=== PATIENT | female | born 1930 | race Caucasian/White ===

== ENCOUNTER 2020-06-08 19:58 | Emergency (ER) | payer OTHER ==
[~2020-06-08] VITALS: Ht 172.7 cm; Wt 59.0 kg
--- NOTE | ~2020-06-08 | EMS ---
[address] [address] EMS Patient Care Report Name: MAXIMUS WILKERSON Room #: REG PHILL Soto#: [id number] Admission: 06/08/20 Attend Phys: Discharge: Date of : [birth year] Report #: [id number] THIS REPORT FOR: //name// Report Transmitted: 06/08/2020 21:17 EMS Care Summary [facility] MED-ACT Incident [id number] @ 06/08/2020 19:05 Incident Location [address] [place] [address] Patient MAXIMUS FUENTES Female, 89 Years 1930 Patient Address [address] [place] [address] Patient History Chronic Obstructive Pulmonary Disease (COPD),Hypertension (HTN),Pacemaker/AICD,Hyperlipidemia,Emphysema,Osteoarthritis,Atrial Fibrillation,Coronary Artery Disease (CAD), Patient Allergies Morphine,Hydrocodone,Amoxicillin,Albuterol, Patient Medications Duloxetine, Lidocaine, Furosemide, Flecainide, Loratadine, Advair, Aspirin, Cardizem, Nystatin, Hydroxyzine, Gabapentin, Metoprolol, Chief Complaint "She's been really combative and confused." Disposition Transported No Lights/[place] Reason Psychiatric Problem/Abnormal Behavior/Suicide Attempt Transported To [address] [address] EMS Patient Care Report Name: MAXIMUS WILKERSON Room #: REG Charles#: [id number] Admission: 06/08/20 Attend Phys: Discharge: Date of : [birth year] Report #: [id number] Narrative Dispatched to [address] Upon our arrival, staff meets EMS at the door. RN reports: Patient normally has periods of confusion and can be combative at points. Normally staff is able to calm her down or she tires herself out. Today, patient started being combative in the morning. She refused to take her medication all day. Staff believes that she has undiagnosed dementia, but daughter doesn't want her to be removed from the facility or move to a different part. Staff reports that today patient was "trying to pull down the fire alarms," and she was "hitting staff members." RN reported that patient was inconsolable. They do UA's on her quite frequently and they always come back negative for a UTI. Her last UA was last month. Staff reports that patient takes some anti-depressants but denies and medication that helps with dementia or schizophrenia. Patient is noted sitting outside of her door with her door open and her cat outside. Patient sees EMS and immediately "wants to see our credentials." When we show her our EMS badges she immediately yells, "I need a police justice. You guys aren't real!" We explain to her that we are trying to help her and to have her explain to us what's going on. It is first attempted to speak very softly at patient and to try and get her to calm down. Patient's LOC is accessed and she is AOx1. Patient goes back and forth between being calm and then screaming at EMS personnel or facility staff. At any point that the nurse tries to explain what's going on, the patient immediately screams at EMS, "Don't listen to her! She's part of the problem." When patient is asked about the problem she says, "I am being kidnapped. They have been writing on napkins to me and telling me to 'Surrender'". Patient insists that she wants to speak to police, so law enforcement is activated C3 in order for patient to try and communicate with them. While patient is saying all of this, she is being incredibly aggressive to EMS staff. She called EMS staff pigs multiple times and made several attempts to hit EMS personnel. Patient attempts to leave the hallway. When she is stopped by an EMS personnel grabbing the arm of the wheelchair, she once again attempts to hit EMS personnel. EMS personnel puts a boot in front of wheel of wheelchair in order to get patient to stay. Patient doesn't realize this for awhile, but once again starts communicating her hallucinations to EMS. It is calmly asked for patient to go to the cot so we can take her out of the facility she does not want to be in. Patient refuses. Staff meanwhile explains the various health ailments that are chronic problems such as a pressure ulcer on her heel and calcifications on patient's knuckles. At one point patient realizes that EMS' boot is in front of her wheelchair and she demands that EMS remove her foot. PM calmly explains that she doesn't want her to go anywhere and we are waiting for the police to show up. It is once again offered for patient to go to the cot which she refuses again. At this time, patient talks more about the napkins and accuses EMS of buying their outfits from secondhand shops in order to act as imposters. Law enforcement show up and patient asks them for their credentials as well and for her to see their guns. It is explained that they cannot give her their gun and patient starts to become [facility] [address] [place] [address] EMS Patient Care Report Name: MAXIMUS WILKERSON Room #: REG [facility].#: [id number] Admission: 06/08/20 Attend Phys: Discharge: Date of : [birth year] Report #: [id number] agitated again. She explains to law enforcement that she is being kidnapped. Law enforcement tries to gently get patient to go to the cot, but she refuses. At this point, EMS takes the wheelchair handles and starts to push wheelchair to the cot. Patient starts screaming and grabs onto the door handle and screams, "Help me," very loudly. Between law enforcement and EMS pushing wheelchair, patient's outreach consultant is lost on the door and she is picked up by four personnel and placed onto the cot. She is still screaming for help. She is placed in soft restraints and the hands and feet. Patient tries to resist, but then goes back to being agitated and asking, "Who is heading all of this?" Cot is wheeled to ambulance. Patient is still initially aggressive just prior to departure. Vitals are obtained along with bG. [facility] is contacted via radio. Throughout transport, patient starts to calm down and lays still on the cot. When she is addressed by EMS, she refuses to open her eyes at points. It isn't until [id number] is pulling into the hospital that patient starts to become agitated again. Cot is wheeled to ER Room 1 where patient is lifted via total lift onto bed and report given to RN. Signatures obtained. Initial Vitals @19:48P: 75,BP: 156/83,SpO2: 93, @19:39P: 83,BP: 177/81,SpO2: 90, @19:28P: 79,R: 16,Pain: 0/10,Temp: 98.6F,Glucose: 91,SpO2: 83, Assessments @19:14MENTAL:Combative,Confused,Hallucinations,SKIN:HEENT:Head/Face: No Abnormalities,Neck/Airway: No Abnormalities,LUNG SOUNDS:General: No Abnormalities,ABDOMEN:General: No Abnormalities,PELVIS//GI:EXTREMITIES:Left Arm: No Abnormalities,Right Arm: No Abnormalities,Left Leg: No Abnormalities,Right Leg: No Abnormalities,PULSE:NEURO:No Abnormalities, Impression Behavioral/psychiatric episode Procedures @19:13ALS AssessmentResponse: UnchangedSucceeded@19:35Surgical Mask on PatientResponse: Unchanged@19:30Patient RestraintResponse: UnchangedSucceeded Timeline 19:03,Call Received 19:03,Psap Call 19:05,Dispatched 19:06,En Route 19:10,On Scene 19:13,At Patient 19:13,ALS Assessment,Response: UnchangedSucceeded, 19:28,BP: / M,PULSE: 79,RR: 16 R,SPO2: 83 Ox,ETCO2: ,B,PAIN: 0,GCS: , [facility] [address] [place] [address] EMS Patient Care Report Name: RAMÍREZ JAIMESMAXIMUS SARABIA Room #: REG PHILL StanfordRJusto#: [id number] Admission: 06/08/20 Attend Phys: Discharge: Date of : [birth year] Report #: [id number] 19:30,Patient Restraint,Response: UnchangedSucceeded, 19:35,Surgical Mask on Patient,Response: Unchanged 19:39,BP: 177/81 M,PULSE: 83,RR: R,SPO2: 90 Ox,ETCO2: ,BG: ,PAIN: ,GCS: , 19:40,Depart Scene 19:48,BP: 156/83 M,PULSE: 75,RR: R,SPO2: 93 Ox,ETCO2: ,BG: ,PAIN: ,GCS: , 19:58,At Destination 20:09,Call Closed Disclaimer v1.1 Copyright 2020 [employer] This EMS Care Summary contains data elements from the applicable legal record (which may be displayed differently). It is designed to provide pertinent information for the following purposes: continuity of care, clinical quality, and state data reporting. The complete legal record is available to ED staff and administrators of the receiving hospital in [employer] Patient Tracker. All data is provided "as is."
[2020-06-08 21:40] LABS: ABSOLUTE NEUTROPHILS 5.4 thou/uL (1.4-8.2); BASOPHILS 1.3 % (0.0-2.0); EOSINOPHILS 1.9 % (0.0-3.0); HEMATOCRIT 34.8 % (37.0-47.0); HEMOGLOBIN 11.3 gm/dL (12.0-15.0); LYMPHOCYTES 15.2 % (24.0-44.0); MCH 30.3 pg (26.0-34.0); MCHC 32.5 g/dL (28.0-37.0); MCV 93.2 fL (80.0-100.0); MONOCYTES 9.1 % (1.0-8.0); PLATELET COUNT 228 thou/uL (150-400); POLYS 72.5 % (36.0-66.0); RBC 3.74 mil/uL (4.20-5.00); RDW 13.7 % (10.5-14.5); WBC 7.5 thou/uL (4.0-11.0)
[2020-06-08 21:54] LABS: ANION GAP 8 mmol/L (7-16); BUN 26 mg/dL (7-18); CALCIUM 9.5 mg/dL (8.5-10.1); CHLORIDE 105 mmol/L (98-107); CO2 30 mmol/L (21-32); CREATININE 1.2 mg/dL (0.6-1.0); GLUCOSE 94 mg/dL (74-106); POTASSIUM 4.6 mmol/L (3.5-5.1); SODIUM 143 mmol/L (136-145)
[2020-06-08 22:01] LABS: MAGNESIUM 2.1 mg/dL (1.8-2.4); SALICYLATE < 2.8 mg/dL (2.8-20.0); SGOT 14 U/L (15-37); SGPT 16 U/L (30-65); TOTAL BILIRUBIN 0.3 mg/dL (0.2-1.0); TOTAL PROTEIN 6.5 g/dL (6.4-8.2); TROPONIN-I <0.06 ng/mL (<0.06)
[2020-06-09 00:42] LABS: URINE BILIRUBIN NEGATIVE (Negative); URINE BLOOD NEGATIVE (Negative); URINE CLARITY CLEAR; URINE COLOR YELLOW; URINE GLUCOSE-RANDOM* NEGATIVE (Negative); URINE KETONES TRACE (Negative); URINE NITRITE-REFLEX NEGATIVE (Negative); URINE PROTEIN (DIPSTICK) NEGATIVE (Negative); URINE SPECIFIC GRAVITY 1.025 (1.005-1.035); URINE UROBILINOGEN 0.2 E.U./dl (0.2-1.0)
[2020-06-09 00:50] LABS: AMP/METHAMP Negative (Negative); BARBITURATES Negative (Negative); BENZODIAZEPINES Negative (Negative); COCAINE Negative (Negative); METHADONE Negative (Negative); OPIATES Negative (Negative); PCP Negative (Negative); URINE LEUKOCYTES-REFLEX 1+ (Negative)
[2020-06-09 01:07] LABS: BACTERIA-REFLEX None Seen /HPF (None Seen); CASTS None Seen /LPF (None Seen); CRYSTALS None Seen /LPF (None Seen); MUCUS None Seen strn/LPF (None Seen); SQUAMOUS 4-10 Moderate /LPF (0-3); URINE RBC None Seen /HPF (0-2); URINE WBC-REFLEX 6-15 Few /HPF (0-5); WBC CLUMPS Occasional (None Seen)
[2020-06-09 05:33] VITALS: BP 155/72
--- NOTE | 2020-06-18 07:54 | EKG ---
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 : [id number] Requested By: Rivas Flores Order Number: [id number] MD: Melo Escoto Measurements Intervals [place] Rate: 73 P: -52 DC: 163 QRS: 50 QRSD: 88 T: 71 QT: 404 QTc: 446 Interpretive Statements Sinus rhythm with first-degree AV block Poor R wave progression Artifact in lead(s) I,II,III,aVR,aVL,aVF,V1 No previous ECG available for comparison Electronically Signed On 06-11-2020 7:23:00 MANAGER RESOURCE by Melo Escoto [email or web address] <ELECTRONICALLY SIGNED> By: Melo Escoto MD, [facility] 06/11/20 0723 49 49 Melo Escoto MD, [facility] /EPI
== END 2020-06-09 05:42 | disposition still patient (30) ==
LOC: ER 19:58
PROVIDERS: Emergency Medicine
DX: F03.91 Unspecified dementia, unspecified severity, with behavioral disturbance (principal); Z20.828 Contact with and (suspected) exposure to other viral communicable diseases; R41.82 Altered mental status, unspecified; R22.31 Localized swelling, mass and lump, right upper limb; Z88.8 Allergy status to other drugs, medicaments and biological substances; Z88.1 Allergy status to other antibiotic agents; Z88.5 Allergy status to narcotic agent

== ENCOUNTER 2020-06-09 07:39 | Inpatient (IN) | payer OTHER ==
[~2020-06-09] VITALS: Ht 160 cm; Wt 58.4 kg
--- NOTE | ~2020-06-09 | D ---
[facility] [place] [address] [address] DISCHARGE SUMMARY Name: MAXIMUS WILKERSON Room #: 523B-B DIS IN M.R.#: [id number] Admission: 06/09/20 Attend Phys: Amandeep Gardner DO Discharge: 06/14/20 Date of : [birth year] Report #: [id number] THIS REPORT FOR: cc: Hong Infante MD, Christopher MS Kerstein, Andrew H. DO ~ DATE OF SERVICE: 06/15/2020 INPATIENT PSYCHIATRIC DISCHARGE SUMMARY ATTENDING PSYCHIATRIST: Amandeep Gardner DO. STRUCTURAL ENGINEER AT: Oli Barakat MD DISCHARGE DIAGNOSES: Major neurocognitive disorder, unspecified etiology with behavioral disturbance, delirium secondary to multiple causes, most recently, she had acute hypoxic respiratory failure. MEDICAL COMORBIDITIES: Include the following: Right middle finger soft tissue swelling with ulcer, most likely gout, ID and Orthopedics were consulted. MRI of the hand was deferred, bilateral ankle ulcers, CKD stage III, history of COPD, history of AFib in sinus rhythm. Flecainide, diltiazem, ramipril, gabapentin. DISCHARGE PLAN: The patient is discharged to the [facility]. Psychiatric and medical care will be per the Hospitalist team's discretion. DISCHARGE MEDICATIONS: Please note this was an emergency discharge. So, the discharge medication list was essentially minimized to the hospitalist's discretion. LABORATORY DATA: Laboratories this admission were as follows: Most recent CBC at time of discharge, white count 5.1, H and H 12.2 and 38.2, platelet count 227. Blood gas showed pO2 of 76.7, bicarbonate 47.4. Chemistries on 06/14/2020, sodium 144, potassium 4.4, chloride 103, bicarbonate 30, anion gap 11, BUN 48, creatinine 2.3. It should be noted the previous creatinine on 06/10/2020 was 1.2. Estimated GFR was 20, glucose 106, calcium 9.6, ____. COVID-19 PCR serology testing was not detected. Imaging was done on 06/14/2020 showed development of multifocal pneumonia in her lungs. REASON FOR ADMISSION: Back on the 06/08/2020 was as follows, an 89-year-old female from [place] [facility] at [facility], recently with aggressive behaviors, verbally and physically aggressive towards staff. This is uncommon for her. She has been refusing medications. On [facility] [address] [place] [address] DISCHARGE SUMMARY Name: RAMÍREZ HELMMAXIMUS Room #: 523B-B [facility] IN ..#: [id number] Admission: 06/09/20 Attend Phys: Amandeep Gardner, Discharge: 06/14/20 Date of : [birth year] Report #: [id number] Thursday, she pulled out the fire alarm since ____. Her daughter, Fabiana, verbalizes that her mother's mental status was fine until the last 6 months. Fabiana reports her being in the treatment by ____ in the past and had an advanced COPD. HOSPITAL COURSE: The patient was admitted to Geriatric Psychiatry Unit. Unfortunately, we did not have a clear trend of improvement with the patient. She would be more alert for a day or two then less alert. Her daughter was very concerned bothered by this. I spent about 40 minutes on the phone with her daughter the day of discharge and I advised her daughter that either she would need to go medical, something could be demonstrated which it was or the patient would be a candidate for comfort care. I communicated the daughter's feedback to me with the nurse. There had been some low pulse ox noted on the day of discharge. CONDITION AT DISCHARGE: Medically unstable. No mental status examination was done at the time of discharge. Vital signs on the 06/14/2020, temperature 36.5, pulse 83, respirations 17, BP 130/46, O2 sat 91% on 6 liters nasal cannula. PROGNOSIS: For this patient is guarded to poor given her age of 89, having an advanced dementia. If treatment from the Medical Unit is abandoned, I think hospice care would be appropriate. By: 50 34 Amandeep Gardner, DO /nt
[2020-06-09 06:10] VITALS: BP 175/71
[2020-06-09 07:30] VITALS: BP 114/93
[2020-06-09 08:00] VITALS: BP 141/103
[2020-06-09 08:02] VITALS: BP 114/93
--- NOTE | 2020-06-09 16:09 | NUR ---
KUMAR contacted the Pt's daughter/DPOA Fabiana Velarde, , to completed the assessment on the Pt. Fabiana did inform that the Pt [place] [facility] Also the Pt does hae issues with ETOH use. Fabiana informed the Pt drinks about a pint of gin a day. This has has been a point of stress between the Pt and Fabiana. Fabiana stated that when the Pt is withdrawing from ETOH the Pt becomes extremely aggitated and will scream and yell. Also that the Pt cognitive decline started about 6 months ago but drastically declined in the last month. Elisa had no further questions or concerns at this time. KUMAR will continue to follow the Pt.
--- NOTE | 2020-06-09 19:34 | NUR ---
Pt. admitted via ER for altered mental status. Daughter describes her having hallucinations with paranoia X 6 months. Describes her mother as thinking/seeing a family living with her in her apartment and thinking things are being stolen from her. Pt. was described as being aggressive and agitated. Also presents with swollen R middle finger with ulcer, painful to touch and ulcers on feet, photographed and placed in chart. Initially alert and orientated X3, ambulating with irregular gait with walker, requiring supervision. Denies SI/HI. Became aggressive later in AM pushing walker against other peers and staff. Calling staff names with insults, then hitting staff in abdomen and then grabbed crotch. Took Haldol PO with alot of encouragement, then spit out on floor. 5mg Haldol given IM per order, spent majority of day sleeping. Was able to stand for wt. Breath sounds clear with congested cough. Reg HR auscultated. Color pink with brisk capillary refill. Pacemaker palpated. Active bowel sounds over soft, rounded abdomen, medium brown formed stool with yellow urine per toilet. Consents done over the phone with DPOA. Rocephin given IM per vastus lateralis bilaterally. Currently sleeping in room.
[2020-06-09 20:18] VITALS: BP 199/86
[2020-06-09 21:33] VITALS: BP 115/44
--- NOTE | 2020-06-10 04:35 | NUR ---
ASSUMED CARE OF PT AT 1900. PT IS A/O X1 AND LETHARGIC. ELEVATED B/P AND LOW O2 WHILE SLEEPING. NOTIFIED SCIENTIFIC SYSTEMS ANALYST. ORDERS GIVEN. PT IS CURRENTLY LYING IN HER BED AND IS ON 2 LITERS OF 02 NC WITH A SITTER AT THE BEDSIDE. SPOKE WITH DAUGHTER IN THE EARLIER EVENING. UPDATE GIVEN. FALL PRECAUTIONS ARE IN PLACE.
[2020-06-10 06:56] LABS: BASOPHILS 0.8 % (0.0-2.0); EOSINOPHILS 2.3 % (0.0-3.0); HEMATOCRIT 40.2 % (37.0-47.0); HEMOGLOBIN 12.9 gm/dL (12.0-15.0); LYMPHOCYTES 20.3 % (24.0-44.0); MCH 30.2 pg (26.0-34.0); MCHC 32.1 g/dL (28.0-37.0); MCV 94.1 fL (80.0-100.0); PLATELET COUNT 251 thou/uL (150-400); POLYS 66.6 % (36.0-66.0); RBC 4.27 mil/uL (4.20-5.00); RDW 13.8 % (10.5-14.5)
[2020-06-10 07:18] LABS: ALBUMIN 3.1 g/dL (3.4-5.0); CALCIUM 9.9 mg/dL (8.5-10.1); CREATININE 1.2 mg/dL (0.6-1.0); POTASSIUM 4.4 mmol/L (3.5-5.1); TOTAL BILIRUBIN 0.3 mg/dL (0.2-1.0)
[2020-06-10 11:23] VITALS: BP 138/60
--- NOTE | 2020-06-10 12:13 | HC ---
[facility] [place] [address] CONSULTATION Name: MAXIMUS WILKERSON Room #: 523B-B ADM IN M.R.#: [id number] Admission: 06/09/20 Attend Phys: Amandeep Gardner DO Discharge: Date of : [birth year] Report #: [id number] THIS REPORT FOR: cc: Hong Infante MD, Christopher MS Jetmore, Allen B. MD ~ DATE OF SERVICE: 06/09/2020 WOUND CARE CONSULTATION NOTE REASON FOR CONSULTATION: Chronic diabetic ulcer of right heel, swollen, inflamed right third finger with open wound in setting of altered mental status. HISTORY OF PRESENT ILLNESS: The patient is an 89-year-old resident of [facility] with a history of dementia and diabetes mellitus type 2, diabetic neuropathy. I have seen the patient previously at [facility] for treatment of her heel ulcer. The patient had a swollen, red and inflamed right third finger, which became worse and was seen by Dr. Soliman in the Wound Care Center weeks ago and then 2 weeks ago required surgical incision and drainage by orthopedic team in [facility]. We have no reports with the patient's daughter, Fabiana Marte, states that physician thought this might be gout related. The patient was then seen in the Wound Care Clinic at [facility], Dr. Serafin Adams 2 days ago on . The patient is now admitted to the Behavioral Psych Unit with altered mental status. The patient's daughter states that she has had trouble with sundowning and disorientation in the evening, strongly desires that she remains in the Behavioral Health Unit. I am consulted for wound care due to the appearance of the right third finger and wound of the heel. I spoke with Dr. Smith. The patient's daughter strongly wishes that whatever medical treatment will be done for the finger, not required that the patient be moved out of the Behavioral Unit and strongly wished for her to remain in the Behavioral Unit. PAST MEDICAL HISTORY: 1. Diabetes mellitus type 2 with diabetic neuropathy. 2. Chronic obstructive pulmonary disease. 3. Dementia. 4. Possible history of the past of gout. 5. 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 MEDICATIONS: See chart. PHYSICAL EXAMINATION: GENERAL: Shows an elderly woman whose mental status is definitely altered per my previous visits with her. She is much less alert and now is conversant. LUNGS: Respirations are unlabored. [facility] [address] [place] [address] CONSULTATION Name: MAXIMUS WILKERSON Room #: 523B-B [facility] IN .R.#: [id number] Admission: 06/09/20 Attend Phys: Amandeep Gardner DO Discharge: Date of : [birth year] Report #: [id number] ABDOMEN: Soft. EXTREMITIES: Examination of the extremities shows her right third finger to be swollen to about twice normal size, somewhat red and with an open circular 1 cm crusted wound medially at the proximal interphalangeal joint. There is white tissue at the base of the wound, which appears possibly to be tendon. Finger is tender to touch. Examination of the lower extremities shows a chronic 3 x 3 x 2 mm deep diabetic ulcer of the right heel, which appears stable. IMPRESSION: I had discussion with the patient's daughter, Fabiana Marte, and with Dr. Smith. Clinically, the right third finger appears to be infected with an open wound and could potentially be a source of her altered mental status. PLAN: Will be to obtain plain radiographs of the finger to assess for possible joint involvement and to rule out osteomyelitis. Wound cultures will be done of the open wound of the right finger. The patient will be placed on Rocephin 2 grams IM so that she may remain in the Behavioral Unit (she would not be able to receive intravenous medication to the Behavioral Unit). We will consult Dr. Rivas Hall, Infectious Disease. I spoke with Dr. Rivas Hall about the case. Wound cultures will be done and topical gentamicin 0.1% will be applied to the finger. Simple foam border for the heel wound. We will stress to all treating physicians the patient should remain in the Behavioral Unit as per her daughter's strong sentiments about this based on past behaviors in a hospital setting. Wound care team will follow, pending x-ray of the right hand, IM antibiotics, infectious disease consultation, Orthopedics, Dr. Mary Singer will also be consulted. <ELECTRONICALLY SIGNED> By: Stone Redd MD 06/10/20 1213 [id number] 181 Stone Redd MD /nt
--- NOTE | 2020-06-10 13:57 | NUR ---
PATIENT ALERT AND RESPONSIVE TO QUESTIONS ADDRESSED TO HER. IN MORNING PATIENT VERY LETHARGIC AND UNABLE TO AWAKEN FOR BREAKFAST. AWOKEN AND DID WELL WITH TAKING HER MEDICATIONS. NURSE PRACTIONER ASSESSED MIDDLE FINGER OF RIGHT HAND AND WILL FOLLOW UP WITH UNIT. E-RAY TAKEN AND TOLERATED WELL. DRESSING CHANGED AND INTACT. AWOKEN FOR LUNCH AND ATE 40 PERCENT. HAS BEEN SITTING DOZING OFF IN DINING [place] ALL DAY.
[2020-06-10 19:58] VITALS: BP 158/75
[2020-06-10 21:37] VITALS: BP 158/75
--- NOTE | 2020-06-11 04:19 | NUR ---
Assumed care of patient at 1900. Pt resting in bed with eyes closed at start of shift and appeared to be sleeping. Pt is alert x 1 to self. Pt has been resting comfortably in bed with her eyes closed. Pt is sleepy but arouseable for assessmewnt. Pt has been calm and cooperative. Pt medication complaint at HS except for Gabepentin, which she refused at HS stating she had already had that about 1500 amd did not want to take it again. Pt denied having any pain at time of assessment. Pt had scheduled breathing tx immediately prior to shift assessment and breath sounds where clear throughout. Pt is a 1:1 for safety at [facility] d/t oxygen. Pt is currently on 1 L oxygen via nasal cannula at [facility]. O2 sat were ranging between 92-94%. Pt has been up x 2 with assist x 1 to bedside commode. Pt had orders for UA, which was collected and sent to lab at 1936. Pt continues denies an thougths of SI/HI. Phone call from Dr. Black towards start of shift received with orders for patient to be NPO at midnight. Order placed and 1:1 staff made aware of NPO status. Pt COVID-19 results came back negative. Pt is a high fall risk and fall risk precautions are in place. Pt uses walker and can be unsteady. Pt has two covered wounds. One opened wound on left heal and a second on on right middle finger w/ possible infection. Wound care consultatation completed on 06/09/20. Will continue to monitor for any changes and safety.
[2020-06-11 07:47] VITALS: BP 126/57
--- NOTE | 2020-06-11 10:34 | NUR ---
ASSUMED CARE AT 0700 THIS MORNING. PT. SITTING IN A RECLINING CHAIR. HER MEDICATIONS WERE GIVEN CRUSHED IN PUDDING. SHE TOOK THESE WITHOUT PROBLEMS. HER CLOTHING WAS CHANGED. HER ARRIVED TO SUPERINTENDENT MEASUREMENT PATIENT. SHE WAS TAKEN TO THE ER EXIT AND PLACED IN THE FAMILY CAR ALONG WITH HER BELONGINGS, DISCHARGE PAPERS, SCRIPTS, AND OTHER PAPERS NEEDED FOR THE FACLITIY. THEY LEFT IN THE FAMILY CAR. REPORT CALLED TO [facility]. NO ANSWER. LEFT MESSAGE FOR THEM TO CALL FOR REPORT. NO RETURN CALL AT THIS TIME.
[2020-06-11 13:30] VITALS: BP 126/57
--- NOTE | 2020-06-11 13:33 | NUR ---
ASSUMED CARE AT 0700 THIS MORNING. PT. IN BED NPO FOR XRAY OF FINGER TO RIGHT HAND. XRAY UNABLE TO BE TAKEN DUE TO PT. HAVING PACEMAKER. DR. Posadas called and wanted xray done. TALKED WITH DR. YOUNG. DR. YOUNG TALKED WITH DR. Posadas ON THE PHONE. AN ASSIST TO DR. Posadas CAME UP HERE. SHE UNWRAPPED THE HAND AND WILL REPORT BACK TO HER DR. MRSA SWAB TAKEN AND TAKEN TO THE LAB. SHE STATED SHE NEEDED UP TO BEDSIDE COMODE BECAUSE SHE NEEDED TO GO TO THE BATHROOM. AFTER SHE COMPLETED THAT SHE WAS SAT IN A CHAIR. WHEN THIS RN RETURNED TO THE ROOM, THE PT. WAS BACK IN BED. SHE HAD DONE THIS HERSELF.
[2020-06-11 19:47] VITALS: BP 168/74
--- NOTE | 2020-06-12 04:53 | NUR ---
Assumed care for this patient at 1900. [facility] shift and earlier part of evening. Pt compliant with HS assessment and medications. Pt takes medications whole and with thin liquids. Pt had peanut butter and crackers for HS snack and ate 100%. Pt denies having any pain, SI/HI, AVH. Pt daughter Fabiana called to speak with her this evening. Pt stated to this nurse she did not want to talk to Fabiana and this time as she did not know what to say to her and did not want to upset her, becoming tearful. This nurse spoke with Fabiana and explained to her that the pt did not wish to talk to her at this time. Fabiana stated she understood and she just wants her mom to know she is there for her and that she can be contacted at anytime. Pt has been calm and cooperative. RT contacted at approximately 2145 as they had not come to administer her scheduled 1900 treatment. RT arrived at floor close to 2330 - 2345 to administer. Pt had treatments scheduled at 1900 and 0100 and received one out of the two treatments. Pt requested help gettig too bed at 2200. Pt has been resting quietly in bed throughout night w/HOB elevated and appears to be sleeping. Pt has wound to right 3rd finger which is wrapped in kerlex. She also has bilateral ulcers on right and left heel. Right heel ulcer is open. Per orders right ankle/heel wrapped with kerlex for protection at HS. Pt is a high fall risk and has fall precautions protocol in place. Pt bed is locked in low position with bed alarm on. Pt is min assist x 1, but on occassion does get up to use bed side commode independently. Pt is reminded to wait for assistance in ambulating and transfering and has been compliant with that this shift. Will continue to monitor for any changes in behavior/mood and for safety.
[2020-06-12 09:11] VITALS: BP 134/59
--- NOTE | 2020-06-12 09:16 | NUR ---
ASSUMED CARE AT 0700 THIS MORNING. PT. IS STABLE, LYING IN HER BED. SHE REFUSED BREAKFAST B/C SHE WANTED TO SLEEP. SHE DID TAKE HER MORNING MEDICATIONS WITHOUT DIFFICULTY. NO BEHAVIORS NOTED.
[2020-06-12 09:22] VITALS: BP 134/59
--- NOTE | 2020-06-12 17:49 | NUR ---
daughter called and wanted to speak with her mother. the phone was passed to the mother. THIS RN OVERHEARD THE PT. SAY, "YOU KNOW I'M NOT WANTING TO DO THAT. YOU CAN'T TELL ME WHAT TO DO. LEAVE ME ALONE". AFTER THE CONVERSATION WAS TERMINATED, THE DAUGHTER CALLED BACK C/O OF HOW SHE THINKS HER MOTHER IS "TOO SNOWED" AND THAT "I SHOULD JUST SIGN HER OUT AMA. DAUGHTER CONTINUED TO BE UPSET DEMANDING WHAT MEDICATIONS THE PT. IS ON. THIS RN REFERED HER TO DR. YOUNG. DR. YOUNG CALLED, INFORMED OF THE SITUATION. THE DAUGHTERS PHONE NUMBER WAS PROVIDED TO THE SO HE COULD CALL HER.
[2020-06-12 20:20] VITALS: BP 117/59
--- NOTE | 2020-06-13 03:26 | NUR ---
ASSUMED CARE ON 06/12/20 @ 19:00. COOPERATED WITH ASSESSMENT, HRRR, LUNGS CLEAR TO AUSCULTATION BILAT, ABD N X 4Q. RIGHT HAND WRAPPED IN GAUZE, DRESSING C/D/I, R HEEL HAS DRESSING C/D/I. COMPLIANT WITH MEDICATION ADMINISTRATION, TAKES MEDS WHOLE WITH THIN WATER. IN BED SLEEPING AT THIS WRITING, WILL CONTINUE TO MONITOR PER UNIT PROTOCOL.
[2020-06-13 09:17] VITALS: BP 145/59
[2020-06-13 19:44] VITALS: BP 125/65
--- NOTE | 2020-06-14 03:09 | NUR ---
ASSUMED CARE ON 06/13/20 @ 19:00, COOPERATED WITH ASSESSMENT AND COMPLIANT WITH MEDICATION ADMINISTRATION. RETIRED TO BED @ AND HAS SLEPT WELL. WILL CONTINUE TO MONITOR PER UNIT PROTOCOL FOR COMFORT AND SAFETY.
[2020-06-14 09:13] VITALS: BP 115/53
[2020-06-14 10:41] VITALS: BP 115/53
--- NOTE | 2020-06-14 11:58 | NUR ---
1158 RESUMMED CARE FROM OVERNIGHT SHIFT THIS AM, PATIENT IN ROOM SLEEP. I GOT PATIENT UP CLEANED HER AND TOOK HER TO DAYROOM FOR BREAKFAST. PATIENT ATE TOOK MEDICATION WITHOUT INCIDENCE. PATIENT IS ORIENTED TO SELF ONLY SPEAK IS GARBLED. PATIENTS ABDOMEN SOFT ROUND BOWEL SOUNDS PRESENT LUNGS SOME RATTLING IN BOTH UPPER AND LOWER LUNGS. PATIENT HAS WET COUGH PATIENT DOES NOT UNDERSTAND ABOUT SI/HI/AH/VH AT PRESENT DUE TO MENTAL STATUS. SHE IS CALM COOPERATIVE WILL CONTINUE TO MONITOR PATIENT FOR SAFETY AND BEHAVIORS.
--- NOTE | 2020-06-14 12:52 | NUR ---
Referral for [facility] memory care faxed to [facility]
[2020-06-14 19:30] VITALS: BP 130/46
[2020-06-14 19:39] LABS: BE(vivo) 2.8 mmol/L (-2 to +3); HCO3 28.4 mmol/L (22.0-26.0); PCO2 47.4 mmHg (35.0-45.0); PO2 76.7 mmHg (80.0-100.0); pH 7.395 (7.360-7.450); sO2 95.2 % (92.0-98.0)
--- NOTE | 2020-06-14 21:24 | NUR ---
Orders received from KARTHIK Mayorga to transfer pt to medical floor. [facility]. ABG done. BPM and CBC stat labs drawn and awaiting results. Pt currently on 6 L of oxygen via nc and stating at 91%. Report given to MARJAN Rose. Mask on and inplace. Last BP 166/53; R 16; P 83 @ 2049. Transfered by bed.
[2020-06-14 21:44] LABS: ABSOLUTE NEUTROPHILS 3.6 thou/uL (1.4-8.2); BASOPHILS 0.6 % (0.0-2.0); EOSINOPHILS 0.1 % (0.0-3.0); HEMATOCRIT 38.2 % (37.0-47.0); HEMOGLOBIN 12.2 gm/dL (12.0-15.0); LYMPHOCYTES 13.5 % (24.0-44.0); MCH 30.2 pg (26.0-34.0); MCHC 31.9 g/dL (28.0-37.0); MCV 94.5 fL (80.0-100.0); MONOCYTES 14.8 % (1.0-8.0); PLATELET COUNT 227 thou/uL (150-400); RBC 4.05 mil/uL (4.20-5.00); RDW 14.1 % (10.5-14.5); WBC 5.1 thou/uL (4.0-11.0)
[2020-06-14 21:45] LABS: CALCIUM 9.6 mg/dL (8.5-10.1); CREATININE 2.3 mg/dL (0.6-1.0); POTASSIUM 4.4 mmol/L (3.5-5.1)
== END 2020-06-14 22:31 | disposition home or self-care (01) | DRG 884 ==
LOC: SBH 07:39
PROVIDERS: Hospitalist; Nurse Practitioner Family; ADMIT Psychiatry & Neurology Psychiatry; ATTEND Psychiatry & Neurology Psychiatry
DX: F03.91 Unspecified dementia, unspecified severity, with behavioral disturbance (principal); N18.30 Chronic kidney disease, stage 3 unspecified; J96.01 Acute respiratory failure with hypoxia; L97.329 Non-pressure chronic ulcer of left ankle with unspecified severity; L97.319 Non-pressure chronic ulcer of right ankle with unspecified severity; L97.419 Non-pressure chronic ulcer of right heel and midfoot with unspecified severity; R41.0 Disorientation, unspecified; J44.9 Chronic obstructive pulmonary disease, unspecified; E11.622 Type 2 diabetes mellitus with other skin ulcer; E11.40 Type 2 diabetes mellitus with diabetic neuropathy, unspecified; M19.041 Primary osteoarthritis, right hand; L03.011 Cellulitis of right finger; F29 Unspecified psychosis not due to a substance or known physiological condition; Z88.6 Allergy status to analgesic agent; Z88.8 Allergy status to other drugs, medicaments and biological substances; Z88.1 Allergy status to other antibiotic agents; E11.22 Type 2 diabetes mellitus with diabetic chronic kidney disease; Z20.828 Contact with and (suspected) exposure to other viral communicable diseases
CPT/HCPCS: 10880

== ENCOUNTER 2020-06-14 20:54 | Inpatient (IN) | payer OTHER ==
[~2020-06-14] VITALS: Ht 167.6 cm; Wt 60.6 kg
[2020-06-14 22:33] VITALS: BP 124/64
[2020-06-15 02:29] LABS: BE(vivo) 1.3 mmol/L (-2 to +3); HCO3 26.8 mmol/L (22.0-26.0); PCO2 46.2 mmHg (35.0-45.0); PO2 234.9 mmHg (80.0-100.0); pH 7.382 (7.360-7.450); sO2 99.5 % (92.0-98.0)
--- NOTE | 2020-06-15 03:07 | NUR ---
ASSUMED CARE OF PATIENT FROM [facility]. PATIENT ON NON-REBREATHER, ABLE TO AMBULATE FROM WHEELCHAIR TO BED. NOT ABLE TO ANSWER ADMISSION QUESTIONS. DAUGHTER CONTACTED, ABLE TO FACETIME WITH NURSE PRACTITIONER AND PATIENT. PATIENT REMAINS LETHARGIC, BUT AROUSABLE. NOW ON 2L. PICTURES OF WOUNDS DOCUMENTED.
[2020-06-15 03:51] VITALS: BP 113/63
[2020-06-15 06:21] LABS: HEMATOCRIT 36.1 % (37.0-47.0); HEMOGLOBIN 11.5 gm/dL (12.0-15.0); MCH 30.2 pg (26.0-34.0); MCHC 31.9 g/dL (28.0-37.0); MCV 94.6 fL (80.0-100.0); PLATELET COUNT 215 thou/uL (150-400); RBC 3.81 mil/uL (4.20-5.00); RDW 14.2 % (10.5-14.5); WBC 4.3 thou/uL (4.0-11.0)
[2020-06-15 06:44] LABS: CALCIUM 9.1 mg/dL (8.5-10.1); CREATININE 2.2 mg/dL (0.6-1.0); POTASSIUM 4.2 mmol/L (3.5-5.1)
[2020-06-15 10:15] LABS: ABSOLUTE NEUTROPHILS 3.1 thou/uL (1.4-8.2); ANISOCYTOSIS SLIGHT; ATYPICAL LYMPHS 1 %
[2020-06-15 15:12] VITALS: BP 129/59
--- NOTE | 2020-06-15 15:12 | NUR ---
INITIAL ASSESSMENT: Received consult. SW reviewed chart and spoke with nursing. Pt was admitted to 3W from [facility] unit due to acute respiratory failure. Pt placed in Enhanced Isolation to r/o COVID-19. Test did come back positive. Pt with low grade fever and is on 2L of O2. Pt is on IV abx. ID consulted. Per chart, pt normally resides at [facility]. Pt with hx of daily ETOH use. No weekend discharge planned. KUMAR is following to assist as needed with discharge planning.
[2020-06-15 19:36] VITALS: BP 143/58
--- NOTE | 2020-06-16 01:12 | NUR ---
PT RESTING IN BED. PT VERY TALKATIVE, CONVERSATION RE CLOTHES AND TV. PT ORIENTED TO SELF NOT TIME OR PLACE OR SITUATION. PT COMPLIANT WITH MEDS AND ASSESSMENT. BED ALARM ON. IVF INTACT. PT HAD HS SNACK. DAUGHTER CALLED FOR UPDATED. O2 PER NC 2L. PALE SKIN TONE, LOOSE COUGH.
--- NOTE | 2020-06-16 01:20 | NUR ---
PTS DAUGHTER WANTING TO KNOW IF PT WILL RECEIVE REMDESIVIR AND IF NOT WHY. WILL PASS ON TO DAY NURSE TO SHARE WITH DR DURING ROUNDS.
[2020-06-16 06:20] VITALS: BP 122/50
[2020-06-16 06:58] VITALS: BP 128/52
[2020-06-16 09:35] LABS: ABSOLUTE NEUTROPHILS 2.8 thou/uL (1.4-8.2); BASOPHILS 0.4 % (0.0-2.0); HEMATOCRIT 34.9 % (37.0-47.0); HEMOGLOBIN 11.2 gm/dL (12.0-15.0); LYMPHOCYTES 11.4 % (24.0-44.0); MCH 30.5 pg (26.0-34.0); MCHC 32.3 g/dL (28.0-37.0); MCV 94.4 fL (80.0-100.0); MONOCYTES 2.6 % (1.0-8.0); PLATELET COUNT 227 thou/uL (150-400); POLYS 85.6 % (36.0-66.0); RBC 3.69 mil/uL (4.20-5.00); WBC 3.3 thou/uL (4.0-11.0)
[2020-06-16 09:42] LABS: FIBRINOGEN 433.4 mg/dL (210-360); INR 1.1; PROTIME 11.6 Seconds (9.3-11.4)
[2020-06-16 09:52] LABS: ALBUMIN 2.5 g/dL (3.4-5.0); CALCIUM 8.7 mg/dL (8.5-10.1); CREATININE 1.3 mg/dL (0.6-1.0); POTASSIUM 4.2 mmol/L (3.5-5.1); TOTAL BILIRUBIN 0.2 mg/dL (0.2-1.0); TOTAL PROTEIN 6.2 g/dL (6.4-8.2)
[2020-06-16 10:56] VITALS: BP 149/71
[2020-06-16 15:11] VITALS: BP 139/79
--- NOTE | 2020-06-16 15:30 | NUR ---
assumed care of pt at 0700. pt alert and oriented x2, some confusion at times, but pleasant and in no acute distress. on 2L NC. up to chair throughout day. up to bsc w/ min assist. vitals stable. family updated with poc - agreeable. wcm.
[2020-06-16 20:06] VITALS: BP 162/80
[2020-06-17 05:01] LABS: CALCIUM 9.1 mg/dL (8.5-10.1); POTASSIUM 4.2 mmol/L (3.5-5.1)
[2020-06-17 05:08] LABS: HEMATOCRIT 35.6 % (37.0-47.0); HEMOGLOBIN 11.5 gm/dL (12.0-15.0); MCH 30.3 pg (26.0-34.0); MCHC 32.3 g/dL (28.0-37.0); MCV 93.5 fL (80.0-100.0); RBC 3.81 mil/uL (4.20-5.00); RDW 13.8 % (10.5-14.5); WBC 5.9 thou/uL (4.0-11.0)
[2020-06-17 07:24] VITALS: BP 143/62
--- NOTE | 2020-06-17 08:27 | NUR ---
PT TRANSFERRING TO BEDSIDE COMMODE AND IS TOLERATING FAIR. DENIES PAIN. RESTING COMFORTABLY. NO NEEDS VOICED. CALL LIGHT WITHIN REACH. FREQUENT OBSERVATION.
[2020-06-17 11:14] VITALS: BP 160/66
--- NOTE | 2020-06-17 17:34 | NUR ---
RN ASSUMED PT'S CARE AT 0700AM, PT KNOWS HER NAME, BUT PT IS CONFUSED AND IMPULSIVE AT TIME, PT CAN FOLLOW MOST OF COMMANDS, PT GETS UP TO BSC WITH ASSIST , PT IS CONTINUING IV ABX, PT IS ON O2 2L/MIN/NC , PT'S VS ARE STABLE BY THIS TIME.
[2020-06-17 19:47] VITALS: BP 192/74
--- NOTE | 2020-06-17 20:33 | NUR ---
PT REPORTED TO HAVE EMESIS AND ELEVATED BP. PRN NAUSEA PROVIDED. WILL PROVIDE MEDS AND RECHECK BP. PT RESTING IN BED. O2 PER NC.
[2020-06-17 21:41] VITALS: BP 147/68
--- NOTE | 2020-06-17 21:55 | NUR ---
PT TOLERATED MEDICATIONS WITH ICE CREAM. PT RESTING IN BED. NO C/O NAUSEA,SBP RECHECKED AND WNL.
[2020-06-18 04:05] VITALS: BP 152/77
[2020-06-18 05:47] LABS: HEMATOCRIT 34.9 % (37.0-47.0); HEMOGLOBIN 11.3 gm/dL (12.0-15.0); MCH 30.3 pg (26.0-34.0); MCHC 32.4 g/dL (28.0-37.0); MCV 93.4 fL (80.0-100.0); RBC 3.73 mil/uL (4.20-5.00); RDW 13.7 % (10.5-14.5); WBC 6.6 thou/uL (4.0-11.0)
[2020-06-18 06:05] LABS: CALCIUM 9.1 mg/dL (8.5-10.1); POTASSIUM 4.3 mmol/L (3.5-5.1)
[2020-06-18 07:10] VITALS: BP 151/48
[2020-06-18 10:54] VITALS: BP 137/71
--- NOTE | 2020-06-18 14:22 | NUR ---
ASSUMED CARE OF PT AT 0700. PT AOX2 W/ CONFUSION. AWARE SHE IS IN HOSPITAL. REPORTS FEELING WELL. STILL REQUIRING O2 WITH ACTIVITY. UP TO BSC. IV ABX INFUSING PER ORDER. ANTICIPATE D/C IN 1-2 DAYS PER PHYSICIAN. PT PROGRESSING TOWARD POC GOALS.
[2020-06-18 15:02] VITALS: BP 151/70
--- NOTE | 2020-06-18 16:17 | NUR ---
KUMAR reviewed chart and spoke with nursing and attending physician. Pt remains in Enhanced Isolation due to COVID-19. Pt is afebrile and on 2L of O2. Pt is on IV abx and IV steroids. Pt has completed course of Ivermectin. Attending states that pt will need SNF placement upon discharge. KUMAR spoke with pt's dtr, Fabiana, via phone. Introduced role of SW. Pt lives alone in an apt at [facility] [place] [facility]. Pt uses a w/c and walker. Pt has been to [facility] in the past. Pt's dtr states that pt would prefer to [facility]. Lengthy discussion with pt's dtr regarding discharge plan to [facility] and also eventual discharge back to her [place] apt. Pt's dtr requested info about private duty agencies. SW discussed alternate SNF options as well. Preference is [facility]. KUMAR faxed referral to [facility] and notified admissions liaison of new referral. [facility] is able to accept pt on the 11th day after her COVID positive test. KMUAR updated attending physician. KUMAR placed call to pt's room. No answer. KUMAR is following to assist as needed with discharge planning.
[2020-06-18 19:09] VITALS: BP 154/78
[2020-06-19 04:23] VITALS: BP 148/73
[2020-06-19 07:02] VITALS: BP 185/89
[2020-06-19 11:07] VITALS: BP 146/74
--- NOTE | 2020-06-19 11:21 | NUR ---
CARE ASSUMED AT 0700, PT A&O X4, FORGETFUL AND IMPULSIVE AT TIMES. DENIES ANY PAIN, ON 2L OF OXYGEN, NO SIGNS OF DISTRESS NOTED. FALL PRECAUTIONS IN PLACE. PT PROGRESSING TOWARDS CARE. WILL CONTINUE TO MONITOR.
--- NOTE | 2020-06-19 13:14 | NUR ---
KUMAR reviewed chart and spoke with nursing and attending physician. Pt remains in Enhanced Isolation due to COVID-19. Pt is afebrile and on 2L of O2. Pt is on IV abx and IV steroids. KUMAR contacted [facility] liaison, who confirms they are able to accept pt when she is out of isolation. KUMAR placed call to pt's room. No answer. KUMAR spoke with pt's dtr, Fabiana via phone to provide update. Fabiana is aware and agreeable with discharge plan. KUMAR is following to assist as needed with discharge planning.
[2020-06-19 15:07] VITALS: BP 147/109
[2020-06-19 19:23] VITALS: BP 167/83
[2020-06-20 01:54] VITALS: BP 147/86
--- NOTE | 2020-06-20 05:58 | NUR ---
PT RESTED WELL THROUGHOUT HOURLY ROUNDS NO CHANGES NOTED , LEG DRESSING DRY AND INTACT.
[2020-06-20 06:56] VITALS: BP 145/65
[2020-06-20 08:44] LABS: HEMATOCRIT 39.7 % (37.0-47.0); HEMOGLOBIN 12.7 gm/dL (12.0-15.0); MCH 29.8 pg (26.0-34.0); MCHC 31.9 g/dL (28.0-37.0); MCV 93.4 fL (80.0-100.0); RBC 4.25 mil/uL (4.20-5.00); RDW 13.8 % (10.5-14.5); WBC 9.9 thou/uL (4.0-11.0)
[2020-06-20 08:49] LABS: CALCIUM 9.5 mg/dL (8.5-10.1); CREATININE 1.1 mg/dL (0.6-1.0); POTASSIUM 4.3 mmol/L (3.5-5.1)
--- NOTE | 2020-06-20 10:21 | NUR ---
KUMAR reviewed chart and spoke with nursing and attending physician. Pt remains in Enhanced Isolation due to COVID-19. Pt is afebrile and on 2L of O2. Pt is on IV steroids. KUMAR faxed updated clinical/therapy notes to [facility] for review. KUMAR is following to assist as needed with discharge planning.
[2020-06-20 11:03] VITALS: BP 139/59
[2020-06-20 15:37] VITALS: BP 109/79
--- NOTE | 2020-06-20 17:33 | NUR ---
Daughter talked about concern of patient's mood change: depresssed, tearful, saying," i am sorry" repeatedly; daughter talked about the concern of medication Olanzapine and Divalproex, voicing that these two medication might be the cause of the mood change of the patient. Doctor is aware. Patient became calm after reassurance of the staff and the daughter.
[2020-06-20 19:09] VITALS: BP 134/70
--- NOTE | 2020-06-20 22:15 | NUR ---
PT RESTING IN BED, LISTENING TO TV. O2 PER NC INCREASED IN L, LOOSE COUGH. PT DOES COUGH WITH INTAKE OF FOOD AND NECTAR LIQUIDS. PT SMILING VERY TALKATIVE AND APPRECIATIVE TOWARDS STAFF. PT ASKING IF SHE IS GOING TO GET THE VACCINE AND WHEN CAN SHE GO HOME TO SEE HER DAUGHTER. PALE SKIN TONE, BLE DUSKY. BED ALARM ON.
[2020-06-21 04:13] VITALS: BP 128/74
[2020-06-21 07:06] VITALS: BP 136/71
[2020-06-21 11:13] VITALS: BP 136/67
--- NOTE | 2020-06-21 11:25 | NUR ---
SW reviewed chart and spoke with nursing and attending physician. Pt remains in Enhanced Isolation due to COVID-19. Pt is afebrile and on 5L of O2. Chest xray ordered. Pt is on IV steroids. Psych is following. No weekend discharge planned. SW updated [facility] liaison. SW is following to assist as needed with discharge planning.
[2020-06-21 12:21] LABS: HEMATOCRIT 38.4 % (37.0-47.0); MCH 29.5 pg (26.0-34.0); MCHC 31.3 g/dL (28.0-37.0); MCV 94.3 fL (80.0-100.0); RBC 4.08 mil/uL (4.20-5.00); RDW 14.2 % (10.5-14.5); WBC 9.2 thou/uL (4.0-11.0)
[2020-06-21 12:37] LABS: CALCIUM 9.5 mg/dL (8.5-10.1); CREATININE 1.1 mg/dL (0.6-1.0); POTASSIUM 4.5 mmol/L (3.5-5.1)
--- NOTE | 2020-06-21 12:41 | NUR ---
PT CARE ASSUMED AT 0700, ALERT AND ORIENTED X2, FORGETFUP AT TIMES. DENIES ANY PAIN, NAUSEA AND VOMITTING. PT IS CURRENTLY ON 5L OF OXYGEN DUE TO O2 SAT IN THE 80'S. DR. GILLIS MADE AWARE, ORDERED CHEST XRAY. UP IN CHAIR JENNIFER, WITH CHAIR ALARM ON. FALL PRECAUTIONS IN PLACE. WILL CONTINUE TO MONITOR
[2020-06-21 15:36] VITALS: BP 189/110
[2020-06-21 16:08] VITALS: BP 156/72
[2020-06-21 19:32] VITALS: BP 177/58
--- NOTE | 2020-06-22 04:07 | NUR ---
Pt. rested quietly during the night when checked on during frequent rounds. She offers no c/o pain. Anxious and tearful at times. Easily short of air upon activity. On 02 at 5 liters per a nasal canula. Bed alarm is on.
[2020-06-22 04:46] VITALS: BP 172/63
[2020-06-22 06:22] LABS: HEMOGLOBIN 11.5 gm/dL (12.0-15.0); MCH 29.8 pg (26.0-34.0); MCHC 31.9 g/dL (28.0-37.0); MCV 93.5 fL (80.0-100.0); RBC 3.85 mil/uL (4.20-5.00); RDW 13.8 % (10.5-14.5); WBC 8.5 thou/uL (4.0-11.0)
[2020-06-22 06:38] LABS: CREATININE 0.9 mg/dL (0.6-1.0); POTASSIUM 4.6 mmol/L (3.5-5.1)
[2020-06-22 13:08] VITALS: BP 118/65
--- NOTE | 2020-06-22 14:59 | NUR ---
PATIENT IS ALERT ORIENTED X4 WITH SOME CONFUSION THIS PM. SHE DENIES PAIN AND RESPIRATIONS ARE EVEN NON LABORED. UP WITH STAND BY ASSIST TO THE BATHROOM. WILL CONT TO MONITOR AND ASSIST NEEDED.
[2020-06-22 16:30] VITALS: BP 164/82
[2020-06-22 19:20] VITALS: BP 128/87
--- NOTE | 2020-06-23 02:38 | NUR ---
OXYGEN INCREASED TO NRB MASK, SHE IS KEEPING O2 SATS IN THE UPPER 90'S. TRIED A VENTI MASK AT 50% O2 SATS IN THE MID 80'S. NEEDS REDIRECTING OFTEN. HOWEVER, IS COOPERATIVE.
[2020-06-23 03:01] VITALS: BP 136/62
[2020-06-23 06:01] LABS: CALCIUM 9.2 mg/dL (8.5-10.1); CREATININE 1.3 mg/dL (0.6-1.0); POTASSIUM 5.2 mmol/L (3.5-5.1)
[2020-06-23 07:05] VITALS: BP 164/75
[2020-06-23 09:54] LABS: BE(vivo) 6.7 mmol/L (-2 to +3); HCO3 31.5 mmol/L (22.0-26.0); PCO2 45.9 mmHg (35.0-45.0); PO2 55.6 mmHg (80.0-100.0); pH 7.454 (7.360-7.450); sO2 90.1 % (92.0-98.0)
[2020-06-23 11:12] VITALS: BP 141/80
--- NOTE | 2020-06-23 12:19 | NUR ---
PATIENT NOTED TO NEED MORE OXYGEN THIS AM AND STARTED ON BIPAP. HAVE TO ADJUST BIPAP TO 70% FIO2. SHE IS CALM. EDUCATED ON NEED FOR BIPAP AND SHE DID UNDERSTAND THE NEED. COOPERATIVE WITH CARE. WILL CONT WITH PLAN OF CARE.
[2020-06-23 12:30] LABS: BE(vivo) 6.5 mmol/L (-2 to +3); HCO3 30.9 mmol/L (22.0-26.0); PCO2 43.6 mmHg (35.0-45.0); pH 7.469 (7.360-7.450); sO2 89.4 % (92.0-98.0)
[2020-06-23 12:31] LABS: PO2 53.2 mmHg (80.0-100.0)
[2020-06-23 15:10] VITALS: BP 163/77
[2020-06-23 19:10] VITALS: BP 152/73
--- NOTE | 2020-06-24 03:12 | NUR ---
PT LYING IN BED. DENIES PAIN. VOIDNG PER BEDSIDE COMMODE. BIPAP APPLIED FOR OVERNIGHT. RESTING COMFORTABLY. NO NEEDS VOICED. CALL LIGHT WITHIN REACH. FREQUENT OBSERVATION.
[2020-06-24 04:06] VITALS: BP 179/80
[2020-06-24 05:46] LABS: HEMATOCRIT 37.1 % (37.0-47.0); HEMOGLOBIN 11.7 gm/dL (12.0-15.0); MCH 29.9 pg (26.0-34.0); MCHC 31.5 g/dL (28.0-37.0); MCV 94.7 fL (80.0-100.0); RBC 3.92 mil/uL (4.20-5.00); RDW 14.2 % (10.5-14.5); WBC 7.3 thou/uL (4.0-11.0)
[2020-06-24 05:52] LABS: CALCIUM 9.1 mg/dL (8.5-10.1); POTASSIUM 4.5 mmol/L (3.5-5.1)
[2020-06-24 07:40] VITALS: BP 174/91
[2020-06-24 10:57] VITALS: BP 186/100
[2020-06-24 15:43] VITALS: BP 114/69
[2020-06-24 16:24] VITALS: BP 161/77
--- NOTE | 2020-06-24 17:51 | NUR ---
NOTED TO HAVE RESIDUAL OF GREATER THAN 500MLS. LOWE CATH INSERTED AND 1600MLS OBTANED. SHE TOLERED WELL. WILL CONT WITH PLAN OF CARE.
--- NOTE | 2020-06-25 03:08 | NUR ---
PT LYING IN BED. RESTLESS AND SLIGHTLY AGITATED THIS EVENING--HALDOL GIVEN. DENIES PAIN. LOWE IN PLACE. CURRENTLY RESTING COMFORTABLY. FREQUENT OBSERVATION.
[2020-06-25 04:40] VITALS: BP 128/63
[2020-06-25 06:34] LABS: CREATININE 1.1 mg/dL (0.6-1.0); POTASSIUM 4.9 mmol/L (3.5-5.1)
[2020-06-25 06:58] VITALS: BP 151/58
[2020-06-25 11:11] VITALS: BP 136/57
--- NOTE | 2020-06-25 12:47 | NUR ---
KUMAR reviewed chart and spoke with nursing. Pt remains in Enhanced Isolation due to COVID-19. Pt is afebrile and requiring bipap/optiflow support. Pt is on IV steroids. Order to place dobhoff entered today. SW updated [facility] liaison. KUMAR spoke with pt's dtr, Fabiana, via phone to provide update. Pt's dtr is aware that pt is not ready for discharge at this time. Preference remains for pt to go to [facility] when medically stable. KUMAR is following to assist as needed with discharge planning.
[2020-06-25 19:06] VITALS: BP 122/61
--- NOTE | 2020-06-25 19:34 | NUR ---
PATIENT HAS RESTED IN BED THROUGH THE DAY. SHE ALSO HAS ALTERNATED BETWEEN OPTIFLO AND BIPAP. SHE HAS TOLERATED BOTH WELL. HAS BEEN DROWSY MOST OF THE DAY. ATE SOME BREAKFAST AND THIS PM ATE MOST OF CAKE DAUGHTER BROUGHT. PLEASANT WITH CARES. TOOK MEDS WITHOUT DIFFICULTY. NEW ORDERS FOR DOBHUFF. COULD NOT FIND AN ICU NURSE TO PUT ONE IN AM. WILL SEE IF PM ICU NURSE CAN PUT ONE IN. IF CANNOT SUCCEED THEN WILL ASK IR IN THE AM.
[2020-06-26 03:59] VITALS: BP 149/73
[2020-06-26 06:15] LABS: CALCIUM 9.4 mg/dL (8.5-10.1); CREATININE 1.1 mg/dL (0.6-1.0); POTASSIUM 4.9 mmol/L (3.5-5.1)
[2020-06-26 07:07] VITALS: BP 190/96
[2020-06-26 11:04] VITALS: BP 146/69
--- NOTE | 2020-06-26 14:08 | NUR ---
SW reviewed chart and spoke with nursing. Pt remains in Enhanced Isolation due to COVID-19. Pt is afebrile and requiring bipap support. Pt is on IV abx. Pt refused to have dobhoff placed. SW updated [facility] liaison. SW is following to assist as needed with discharge planning.
[2020-06-26 15:01] VITALS: BP 117/58
--- NOTE | 2020-06-26 18:30 | NUR ---
RN ASSUMED PT'S CARE AT 0700AM, PT IS A&0X3, PT CAN FOLLOW COMMANDS, PT IS ON BIPAP WITH O2 80% AT MOST OF TIMES TO KEEP O2SAT AT 92-94%,DR HAS CALLED DR ABOUT PT'S LOW O2SAT WITH ACTIVITIES AND PT REFUSED TO PUT DOBHOFF TUBE FOR HER AGAIN, BECAUSE PT IS UNABLE TO EATING WHEN PT IS ON BIPAP, PT STARTS IV FLUID , RN WILL REPORT TO NEXT SHIFT TO KEEP EYE ON PT.
[2020-06-26 19:20] LABS: BE(vivo) 3.5 mmol/L (-2 to +3); PCO2 42.1 mmHg (35.0-45.0); sO2 88.6 % (92.0-98.0)
[2020-06-26 19:23] LABS: PO2 53.1 mmHg (80.0-100.0)
[2020-06-26 19:45] VITALS: BP 153/80
--- NOTE | 2020-06-26 20:23 | NUR ---
PT CONFUSED . HS DEMENTIA. FOLLOWS SIMPLE COMMANDS. BLIND R EYE, SOME VISION LEFT EYE PER PT. PT ON BIPAP DUE TO DESATTING. ABGS DONE.PULMAONARY ANSERING SERVIVE CALLED. WAITING FOR RETURN OF CALL. UNGS SOUND CLEAR DIMINSHED AT BASES. RR 34 SAT 95-96 ON BIPAP WITH 100% O2. WILL CONTINUE TO MONITOR PT CLOSELY.
[2020-06-27 00:18] VITALS: BP 123/53
[2020-06-27 00:51] VITALS: BP 151/74; BP 160/66
[2020-06-27 04:19] VITALS: BP 157/69
[2020-06-27 07:08] LABS: CALCIUM 9.5 mg/dL (8.5-10.1); CREATININE 1.2 mg/dL (0.6-1.0); POTASSIUM 4.5 mmol/L (3.5-5.1)
[2020-06-27 11:24] VITALS: BP 163/65
--- NOTE | 2020-06-27 15:46 | NUR ---
SW reviewed chart and spoke with nursing and attending physician. Pt remains in Enhanced Isolation due to COVID-19. Pt is afebrile and requiring bipap at 100%. Pt is on IV steroids. Pt's family want to continue aggressive care at this time. KUMAR is following to assist as needed with discharge planning.
[2020-06-27 16:02] VITALS: BP 135/57
--- NOTE | 2020-06-27 18:28 | NUR ---
ASSUMED PATIENT CARE AT 0700. ALERT, CONFUSED. FAMILY BROUGHT FOOD FOR PATIENT. ONLY TOOK A FEW BIT. 55L/100% HIGH FOLLOW WITH NRB WHEN EATTING WITH O2 SAT 75-88%. PATIENT WAS ON 100% BIPAP MOST OF TIME. NOT TOWARDS POC GOALS. WILL KEEP MONITOR.
[2020-06-27 20:47] VITALS: BP 147/63
--- NOTE | 2020-06-28 01:46 | NUR ---
PT CONFUSED . FOLLOWS SIMPLE REQUESTS. VSS AFEBRILE ON BIPAP. LUNGS SOUND SLIGHTLY COARSE LLL. NO C/O PAIN. TOLERATED HS SNACK ALONG WITH HER MEDS AND CUP OF THICKENED APPLE JUICE. . ZGARD TO BOTTOM APPLIED LAURO NOTED.
[2020-06-28 04:54] VITALS: BP 155/61; BP 99/69
[2020-06-28 06:36] LABS: ABSOLUTE NEUTROPHILS 10.1 thou/uL (1.4-8.2); HEMATOCRIT 32.7 % (37.0-47.0); HEMOGLOBIN 10.4 gm/dL (12.0-15.0); LYMPHOCYTES 2.3 % (24.0-44.0); MCH 29.9 pg (26.0-34.0); MCHC 31.8 g/dL (28.0-37.0); MCV 94.2 fL (80.0-100.0); PLATELET COUNT 223 thou/uL (150-400); POLYS 92.7 % (36.0-66.0); RBC 3.47 mil/uL (4.20-5.00); RDW 14.4 % (10.5-14.5); WBC 10.9 thou/uL (4.0-11.0)
[2020-06-28 06:59] LABS: ALBUMIN 2.2 g/dL (3.4-5.0); CREATININE 0.9 mg/dL (0.6-1.0); POTASSIUM 4.4 mmol/L (3.5-5.1); TOTAL BILIRUBIN 0.4 mg/dL (0.2-1.0); TOTAL PROTEIN 5.8 g/dL (6.4-8.2)
[2020-06-28 08:09] VITALS: BP 175/76
--- NOTE | 2020-06-28 14:23 | NUR ---
SW reviewed chart and spoke with nursing. Enhanced Isolation precautions have been discontinued. Pt is requiring bipap support at 100%. Pt is on IV steroids. Pt is a DNR. No weekend discharge planned. KUMAR is following to assist as needed with discharge planning.
[2020-06-28 15:39] VITALS: BP 170/81
--- NOTE | 2020-06-28 18:10 | NUR ---
ASSUMED PATIENT CARE AT 0700. MORE ALERT. ASSISTED EATTING AND DRIAKING. ON HIGH FOLLOW AND NRB MOST OF TIME, 02 SAT 90-92%. SLOWLY TOWARDS POC GOALS.
[2020-06-28 19:37] VITALS: BP 165/72
[2020-06-29 04:09] VITALS: BP 144/65
--- NOTE | 2020-06-29 04:21 | NUR ---
continues on the 95% optiflo plus non rebreather mask. dtr called tonight and requested that Dinesh take care of her mother today. she was restless at bedtime and needed the haldol to settle down. iv site replaced this shift.
[2020-06-29 08:12] VITALS: BP 198/87
[2020-06-29 09:26] LABS: HEMOGLOBIN 11.7 gm/dL (12.0-15.0); MCH 29.5 pg (26.0-34.0); MCHC 31.5 g/dL (28.0-37.0); MCV 93.7 fL (80.0-100.0); RBC 3.95 mil/uL (4.20-5.00); RDW 13.9 % (10.5-14.5)
[2020-06-29 09:47] LABS: CALCIUM 9.7 mg/dL (8.5-10.1); CREATININE 0.9 mg/dL (0.6-1.0); POTASSIUM 5.1 mmol/L (3.5-5.1)
[2020-06-29 15:04] VITALS: BP 173/77
[2020-06-29 15:54] VITALS: BP 173/77
--- NOTE | 2020-06-29 18:28 | NUR ---
HAS BEEN ON AND OFF OPTIFLO AND BIPAP. OCCASIONALLY CONFUSED AND TAKES OFF OXYGEN. DOES NOT UNDERSTAND SOMETIMES WHY SHE NEEDS OXYGEN. EDUCATED PATIENT ON NUMEROUS OCCASIONS.
[2020-06-29 20:25] VITALS: BP 167/71
[2020-06-30 05:02] VITALS: BP 153/60
--- NOTE | 2020-06-30 05:18 | NUR ---
Received pt. on optiflow plus NRB. Desats easily jessica when she's restless. Assisted to reposition and made her comfortable on bed. She slept some and has maintained O2 sat in the mid 90's.. RT put her on BIPAP ,slep tsome then once she woke up she is very agitated, screaming and wanting to get out of here. She also stated she wants mask (BIPAP off) and she knows that she is going to if she does that. Verbalized she is tired of it and she is ready to just go. Pt. given haldol IV to help with agitation. She took off BIPAP and won't allow staff/RT to put it back on her. RT put her back on Optiflow. Daughter notified and updated on pt. condition. She spoke with her her mom and she stated her mom agreed to be put back on BIPAP as long as we get her up in the chair. Pt. assisted to get up in the recliner chair x2 assist and use of gait belt. She is very weak and very unsteady. RT paged again and informed him that pt. agreed to be back on BIPAP now that she's up on the chair. Pt. started to calm down while up in the recliner chair.Daughter requested to inform her once pt. is up in the chair. Daughter notified.
[2020-06-30 07:00] VITALS: BP 149/61
--- NOTE | 2020-06-30 07:11 | NUR ---
Pt. transferred to ( rm 213 ) this am with all her belongings. Daughter Fabiana informed of transfer.
[2020-06-30 11:00] VITALS: BP 158/52
[2020-06-30 16:00] VITALS: BP 135/64
--- NOTE | 2020-06-30 17:31 | NUR ---
PT RECEIVED FROM 3W. ALERT TO SELF AND PLACE. PT CURRENTLY ON BIPAP, USING HI FLOW OXYGEN WHEN EATING AND TAKING MEDICATIONS. PT IS ON NECTAR THICK DIET, TAKES MEDICATIONS WITH APPLE SAUCE. PT IS CHAIR FAST. SEEN BY DR ROGERS. PT DAUGHTER AT BEDSIDE THIS AFTERNOON. PT MOVED FROM 213 TO 203 TO ACCOMODATE RESPIRATORY NEEDS OF PT. PT SITTING COMFORTABLY IN CHAIR WEARING BIPAP. POC CONTINUE TO MONITOR O2 SAT. FALL PRECAUTIONS IN PLACE.
[2020-06-30 19:00] VITALS: BP 180/67
[2020-07-01 03:29] VITALS: BP 150/72
[2020-07-01 04:18] LABS: ALBUMIN 2.3 g/dL (3.4-5.0); CALCIUM 9.1 mg/dL (8.5-10.1); TOTAL BILIRUBIN 0.6 mg/dL (0.2-1.0); TOTAL PROTEIN 5.7 g/dL (6.4-8.2)
[2020-07-01 04:24] LABS: HEMATOCRIT 33.1 % (37.0-47.0); HEMOGLOBIN 10.5 gm/dL (12.0-15.0); MCH 29.9 pg (26.0-34.0); MCHC 31.8 g/dL (28.0-37.0); MCV 94.3 fL (80.0-100.0); RBC 3.51 mil/uL (4.20-5.00); RDW 14.5 % (10.5-14.5)
--- NOTE | 2020-07-01 04:25 | NUR ---
PT LYING IN BED. TOLERATING BIPAP OFF AND ON. DENIES PAIN. CURRENTLY RESTING COMFORTABLY. FREQUENT OBSERVATION.
[2020-07-01 04:33] LABS: POTASSIUM 5.1 mmol/L (3.5-5.1)
[2020-07-01 07:35] VITALS: BP 164/75
[2020-07-01 11:30] VITALS: BP 134/103
[2020-07-01 16:35] VITALS: BP 143/65
--- NOTE | 2020-07-01 18:37 | NUR ---
PT IS AWAKE, ORIENTED TO SELF, PLEASANT. PT IS WEARING BIPAP CONTINUOUSLY, AND WANTS TO SIT UP IN CHAIR WHICH IS COMFORTABLE FOR HER WHEN WEARING BIPAP. HIFLOW MASK USED FOR EATING AND TAKING ORAL MEDICATIONS. PT DESATS TO 70-80% DAUGHTER AT THE BEDSIDE. DR GILLIS HAS AUTHORIZED THE DAUGHTER TO HELP WITH FEEDING HER MOTHER, AND OTHER CARES SHE FEELS COMFORTABLE WITH. BIPAP MASK HAS BEEN GIVING PT SOME DIFFICULTY, THE TOP BUTTON IS EASILY DEPRESSED AND CAN MOVE AWAY FROM FACE. PT IS VISUALLY IMPAIRED AND USES FERRERA TO CALL NURSE. CURRENT POC IS TO CONTINUE PT O2 SAT >90%. WOUND DOCTOR D/C'D GENTAMICIN FOR FINGER WOUND. CONTINUE TO OBSERVE WOUND SITES. FALL PRECAUTIONS IN PLACE.
[2020-07-01 19:13] VITALS: BP 171/85
[2020-07-02 03:59] VITALS: BP 153/64
[2020-07-02 04:17] LABS: CALCIUM 9.6 mg/dL (8.5-10.1); CREATININE 1.2 mg/dL (0.6-1.0); POTASSIUM 4.9 mmol/L (3.5-5.1)
--- NOTE | 2020-07-02 04:30 | NUR ---
PT IS ON BIPAP AT FIO2 AT 100 PERCENT DESATURATES AND TAKES THE MASK OFF ALL NIGHT LONG. HALIDOL GIVEN LITTLE HELP. AGITATION NOTED. KEEPS REMOVING THE MASK WITH ALL NURSING CARE THROUGH THE SHIFT. ENCOURAGE PT TO LEAVE MASK ON BUT TUGS AT IT AND THE DESATURATES TO THE 74 PERCENT. RATHER QUICKLY. SKIN HAS BRUSING NOTED. IN BED WITH BIPAP MACHINE ON AT THIS TIME. HAS A LOWE CATH. LUNGS ARE COARSE AND PT VERY CONGESTED AT THIS TIME. CARE IS VERY TIME CONSUMING . PT REPORTS SHE JUST WANTS TO . TV ON FOR DISTRACTION. CALL LIGHT WITHIN REACH.
[2020-07-02 07:50] VITALS: BP 130/30
[2020-07-02 09:53] VITALS: BP 130/30
--- NOTE | 2020-07-02 11:20 | HC ---
[facility] [place] [address] CONSULTATION Name: MAXIMUS NIETO Room #: 203-P ADM IN M.R.#: [id number] Admission: 06/14/20 Attend Phys: Hong Infante MD Discharge: Date of : [birth year] Report #: [id number] THIS REPORT FOR: cc: Hong Infante MD, Neal A. MD Althoff,Van Cevallos MD ~ DATE OF SERVICE: 06/15/2020 CHIEF COMPLAINT: Multiple wounds. HISTORY OF PRESENT ILLNESS: This is an 89-year-old female patient who has a history of dementia with acute mental status changes, was admitted recently to the [facility] on 06/09 for dementia and aggressive behavior. She became hypoxic. She has been admitted to the acute care side due to increasing dyspnea, possible COVID infection. The patient can provide no information about herself right now. She is crying and not resisting care, but certainly not able to comment about her current condition. PAST MEDICAL HISTORY: Positive for history of a previous pacemaker, hypertension, neuropathy to her hands and feet, recent infection versus gout, gouty flare to the right third finger, history of COPD. SOCIAL HISTORY: Positive for some alcohol use. Unknown smoking. FAMILY HISTORY: Not obtainable at this time. ALLERGIES: INCLUDE ALBUTEROL, AMOXICILLIN, AUGMENTIN, HYDROCODONE, LEVAQUIN, MORPHINE, OXYCODONE, GEODON. MEDICATIONS: Include ascorbic acid, aspirin, vitamin D, diltiazem, docusate sodium, Tylenol, ipratropium, albuterol, doxycycline, famotidine, flecainide, furosemide, gabapentin, loratadine, lorazepam, olanzapine, prednisone, thiamine. REVIEW OF SYSTEMS: Not obtainable due to the patient's condition. PHYSICAL EXAMINATION: VITAL SIGNS: Include temperature 37.1, pulse 84, respiratory rate 18, blood pressure 129/59. GENERAL: This is a chronically ill-appearing female patient who appears to be in some emotional distress. HEENT: Head normocephalic. Nose and throat clear. NECK: Supple. LUNGS: Diminished. HEART: Tachycardic. [facility] [address] [place] [address] [facility]: [facility]-P ADM IN ..#: [id number] Admission: 06/14/20 Attend Phys: Hong Infante MD Discharge: Date of : [birth year] Report #: [id number] ABDOMEN: Soft. Bowel sounds present. EXTREMITIES: Demonstrate swelling and some ulceration to the right third proximal interphalangeal joint with some ulceration, it is much improved since I last saw her. She has stage 3 pressure ulcer to the right heel and a venous type ulcer to the left third toe and abrasions to her left ortez. NEUROLOGIC: The patient is moving symmetrically. She is disoriented. LABORATORY DATA: Sodium 149, potassium 4.2, chloride 108, CO2 of 28, BUN 50, creatinine 2.2, glucose 90, calcium 9.1. White blood cell count 4.3 with hemoglobin 11.5, hematocrit of 36.1, platelet count 215,000. COVID serology is positive. CLINICAL IMPRESSION: 1. Right third finger proximal interphalangeal joint ulceration likely due to underlying gout. 2. Fungal rash to the sacral gluteal region. 3. Traumatic abrasion to the left ortez. 4. Venous ulcer, left third toe. 5. Stage 3 pressure ulcer, right heel. 6. Acute hypoxic respiratory failure with COVID-19 diagnosis. 7. Type 2 diabetes mellitus. 8. Hypertension. 9. Atrial fibrillation. 10. Dementia with aggressive behavior. 11. Mild protein-calorie malnutrition, albumin 3.1. RECOMMENDATIONS: At this point in time, we will recommend topical gentamicin, Xeroform and gauze to the right third finger. We will recommend antifungal moisture barrier cream to the sacral gluteal region, q. 2 hour turning and positioning, Xeroform, Kerlix to the lower extremities, venous ulcer to the left third toe, Betadine to the right heel, PRAFO boots at all times. I appreciate being asked to see her in consultation. <ELECTRONICALLY SIGNED> By: Van Soliman MD 07/02/20 [id number] Van Soliman MD /nt
--- NOTE | 2020-07-02 12:08 | NUR ---
PT CARE ASSUMED AT 0700. PT CONTINUES TO PULL BIPAP OFF OF HER FACE. BIPAP 55L [id number]. PACEMAKER. BEDBATH GIVEN. IV PATENT WITH NO REDNESS OR EDEMA, SALINE LOCKED. BM TODAY. LOWE IN PLACE. PT PASSED AT 1105 VERIFIED WITH SECOND NURSE. DR. GILLIS CALLED. FAMILY AT BEDSIDE AT TIME OF PASSING.
--- NOTE | 2020-07-02 14:13 | NUR ---
PATIENT PASSED UNEXPECTEDLY. THIS SECRETARY BOOKKEEPER WAS NOTIFIED BY VOICIEMAIL IN OFFICE. DAUGHTER WAS GONE BY TIME VOICEMAIL WAS HEARD. [facility] SECRETARY BOOKKEEPER CALLED THE PATIENT'S DAUGHTER. WE DID LIFE REVIEW AND DISCUSSED HER LOVE FOR HER MOTHER. THIS SECRETARY BOOKKEEPER PASSSED ON CONDOLENCES.
== END 2020-07-02 11:05 | DRG 177 ==
LOC: 3W 20:54 → 2N 06-30 07:18
PROVIDERS: Internal Medicine Pulmonary Disease; Nurse Practitioner Family; Pediatrics; Specialist; ADMIT Family Medicine; ATTEND Family Medicine
PROC: 5A09357 Assistance with Respiratory Ventilation, Less than 24 Consecutive Hours, Continuous Positive Airway Pressure (ICD-10-PCS; principal; 2020-06-23)
PROC: 5A0935A Assistance with Respiratory Ventilation, Less than 24 Consecutive Hours, High Flow/Velocity Cannula (ICD-10-PCS; principal; 2020-06-23)
PROC: 5A0935A Assistance with Respiratory Ventilation, Less than 24 Consecutive Hours, High Flow/Velocity Cannula (ICD-10-PCS; 2020-06-24)
PROC: 5A09357 Assistance with Respiratory Ventilation, Less than 24 Consecutive Hours, Continuous Positive Airway Pressure (ICD-10-PCS; 2020-06-24)
PROC: 5A0935A Assistance with Respiratory Ventilation, Less than 24 Consecutive Hours, High Flow/Velocity Cannula (ICD-10-PCS; 2020-06-25)
PROC: 5A09357 Assistance with Respiratory Ventilation, Less than 24 Consecutive Hours, Continuous Positive Airway Pressure (ICD-10-PCS; 2020-06-25)
PROC: 5A09357 Assistance with Respiratory Ventilation, Less than 24 Consecutive Hours, Continuous Positive Airway Pressure (ICD-10-PCS; 2020-06-26)
PROC: 5A0935A Assistance with Respiratory Ventilation, Less than 24 Consecutive Hours, High Flow/Velocity Cannula (ICD-10-PCS; 2020-06-26)
PROC: 5A09357 Assistance with Respiratory Ventilation, Less than 24 Consecutive Hours, Continuous Positive Airway Pressure (ICD-10-PCS; 2020-06-27)
PROC: 5A0935A Assistance with Respiratory Ventilation, Less than 24 Consecutive Hours, High Flow/Velocity Cannula (ICD-10-PCS; 2020-06-27)
PROC: XW13325 Transfusion of Convalescent Plasma (Nonautologous) into Peripheral Vein, Percutaneous Approach, New Technology Group 5 (ICD-10-PCS; 2020-06-27)
PROC: 5A09357 Assistance with Respiratory Ventilation, Less than 24 Consecutive Hours, Continuous Positive Airway Pressure (ICD-10-PCS; 2020-06-28)
PROC: 5A0935A Assistance with Respiratory Ventilation, Less than 24 Consecutive Hours, High Flow/Velocity Cannula (ICD-10-PCS; 2020-06-28)
PROC: 5A09357 Assistance with Respiratory Ventilation, Less than 24 Consecutive Hours, Continuous Positive Airway Pressure (ICD-10-PCS; 2020-06-29)
PROC: 5A0935A Assistance with Respiratory Ventilation, Less than 24 Consecutive Hours, High Flow/Velocity Cannula (ICD-10-PCS; 2020-06-29)
PROC: 5A0935A Assistance with Respiratory Ventilation, Less than 24 Consecutive Hours, High Flow/Velocity Cannula (ICD-10-PCS; 2020-06-30)
PROC: 5A09357 Assistance with Respiratory Ventilation, Less than 24 Consecutive Hours, Continuous Positive Airway Pressure (ICD-10-PCS; 2020-06-30)
PROC: 5A09357 Assistance with Respiratory Ventilation, Less than 24 Consecutive Hours, Continuous Positive Airway Pressure (ICD-10-PCS; 2020-07-01)
PROC: 5A0935A Assistance with Respiratory Ventilation, Less than 24 Consecutive Hours, High Flow/Velocity Cannula (ICD-10-PCS; 2020-07-01)
PROC: 5A0935A Assistance with Respiratory Ventilation, Less than 24 Consecutive Hours, High Flow/Velocity Cannula (ICD-10-PCS; 2020-07-02)
PROC: 5A09357 Assistance with Respiratory Ventilation, Less than 24 Consecutive Hours, Continuous Positive Airway Pressure (ICD-10-PCS; 2020-07-02)
DX: U07.1 COVID-19 (principal); L89.613 Pressure ulcer of right heel, stage 3; J12.82 Pneumonia due to coronavirus disease 2019; N17.9 Acute kidney failure, unspecified; F03.91 Unspecified dementia, unspecified severity, with behavioral disturbance; E44.1 Mild protein-calorie malnutrition; B48.8 Other specified mycoses; N18.30 Chronic kidney disease, stage 3 unspecified; I12.9 Hypertensive chronic kidney disease with stage 1 through stage 4 chronic kidney disease, or unspecified chronic kidney disease; J44.9 Chronic obstructive pulmonary disease, unspecified; S80.812A Abrasion, left lower leg, initial encounter; W19.XXXA Unspecified fall, initial encounter; L97.529 Non-pressure chronic ulcer of other part of left foot with unspecified severity; M19.041 Primary osteoarthritis, right hand; E11.40 Type 2 diabetes mellitus with diabetic neuropathy, unspecified; E11.22 Type 2 diabetes mellitus with diabetic chronic kidney disease; F41.9 Anxiety disorder, unspecified; M10.041 Idiopathic gout, right hand; I48.91 Unspecified atrial fibrillation; Z95.0 Presence of cardiac pacemaker; Z88.1 Allergy status to other antibiotic agents; Z88.5 Allergy status to narcotic agent; Z88.8 Allergy status to other drugs, medicaments and biological substances; Y93.89 Activity, other specified; Y92.89 Other specified places as the place of occurrence of the external cause; Y99.8 Other external cause status; Z68.21 Body mass index [BMI] 21.0-21.9, adult
CPT/HCPCS: 10081; 10779; 10879